=== PATIENT | female | born 1985 | race Caucasian/White ===

== ENCOUNTER 2018-11-21 22:22 | Emergency (ER) | payer OTHER ==
[~2018-11-21] VITALS: Ht 157.5 cm; Wt 73.0 kg
[2018-11-21 22:25] VITALS: BP 130/77; PULSE 86; RESP 18; Ht 157.5 cm; Wt 73.0 kg
--- NOTE | 2018-11-22 07:31 | ERD ---
ER Documentation Chief Complaint Chief Complaint NECK PAIN WITH RADIAITING ARM NUMBNESS/PAIN HPI 33-year-old female presents for bilateral hand numbness times 3 days. She also states she has bilateral feet pain. The foot pain is noted to be on the plantar side. She took ibuprofen Tylenol with some relief however she states that the symptoms are still there. She also has associated neck pain times 3 days. She notes pain to be 6 out of 10, described as a numbness. No prior similar symptoms. She does do work that requires repetitive movement of hands. ROS All systems reviewed and are negative except as per history of present illness. Medications Home Meds No Active Prescriptions or Reported Meds Allergies Allergies: Coded Allergies: No Known Allergy (Verified , 11/21/18) PMhx/Soc Medical and Surgical Hx: pt denies Medical Hx, pt denies Surgical Hx History of Surgery: No Anesthesia Reaction: No Hx Neurological Disorder: No Hx Respiratory Disorders: No Hx Cardiac Disorders: No Hx Psychiatric Problems: No Hx Miscellaneous Medical Probl: No Hx Alcohol Use: No Hx Substance Use: No Hx Tobacco Use: No Smoking Status: Never smoker Physical Exam Vitals Vital Signs Date Temp Pulse Resp B/P (MAP) Pulse Ox O2 O2 Flow FiO2 Time Delivery Rate 11/21/18 97.2 86 18 130/77 99 22:25 (94) Physical Exam Const: No acute distress Neck: Full range of motion. No meningismus. No midline tenderness. Resp: Clear to auscultation bilaterally Cardio: Regular rate and rhythm, no murmurs, bilateral radial and dorsalis pedis pulses intact Abd: Soft, non tender, non distended. Normal bowel sounds Skin: No petechiae or rashes Back: No midline or flank tenderness Ext: No cyanosis, or edema, bilateral upper and lower extremity muscle strength 5 out of 5, no actual tenderness to palpation of the bilateral hands or feet. Neur: Awake and alert, bilateral upper and lower extremity sensation intact Psych: Normal Mood and Affect Results 24 hrs Laboratory Tests Test 11/21/18 23:41 White Blood Count 9.2 10^3/ul Red Blood Count 4.54 10^6/ul Hemoglobin 13.7 g/dl Hematocrit 40.2 % Mean Corpuscular Volume 88.5 fl Mean Corpuscular Hemoglobin 30.2 pg Mean Corpuscular Hemoglobin Concent 34.1 g/dl Red Cell Distribution Width 12.1 % Platelet Count 275 10^3/UL Mean Platelet Volume 10.0 fl Immature Granulocytes % 0.300 % Neutrophils % 55.5 % Lymphocytes % 35.3 % Monocytes % 5.8 % Eosinophils % 2.3 % Basophils % 0.8 % Nucleated Red Blood Cells % 0.0 /100WBC Immature Granulocytes # 0.030 10^3/ul Neutrophils # 5.1 10^3/ul Lymphocytes # 3.3 10^3/ul Monocytes # 0.5 10^3/ul Eosinophils # 0.2 10^3/ul Basophils # 0.1 10^3/ul Nucleated Red Blood Cells # 0.0 10^3/ul Sodium Level 138 mmol/L Potassium Level 3.7 mmol/L Chloride Level 101 mmol/L Carbon Dioxide Level 25 mmol/L Anion Gap 12 Blood Urea Nitrogen 12 mg/dl Creatinine 0.59 mg/dl Est Glomerular Filtrat Rate mL/min > 60 mL/min Glucose Level 104 mg/dl Calcium Level 9.5 mg/dl Total Bilirubin 0.2 mg/dl Direct Bilirubin 0.00 mg/dl Indirect Bilirubin 0.2 mg/dl Aspartate Amino Transf (AST/SGOT) 43 IU/L Alanine Aminotransferase (ALT/SGPT) 88 IU/L Alkaline Phosphatase 80 IU/L Total Protein 8.3 g/dl Albumin 4.7 g/dl Globulin 3.60 g/dl Albumin/Globulin Ratio 1.30 Procedures/MDM Medical Decision Making: Differential diagnosis includes but not limited to CVA, carpal tunnel syndrome, muscle strain Patient appeared well on physical exam. There is no actual tenderness to palpation on physical examination of the hands or feet. CBC showed no anemia, no elevated WBC to suggest systemic infection CMP showed normal electrolytes, renal function was normal, there was mildly elevated ALT of 88. Otherwise liver function test normal. Patient advised that he will need to follow-up with his primary care physician f or repeat liver function test. Patient likely has musculoskeletal pain ED course: Patient was given . Symptoms improved with treatment. Patient advised to continue to follow with primary care physician for possible referral to neurology. Patient advised to take [id number] pain medication Patient advised to follow up with PCP in 1-2 days. Patient advised to return to ED for new or worsening symptoms. Patient stable on discharge from the ED. Disclaimer: Inadvertent spelling and grammatical errors are likely due to EHR/dictation software use and do not reflect on the overall quality of patient care. Also, please note that the electronic time recorded on this note does not necessarily reflect the actual time of the patient encounter. Departure Diagnosis: Primary Impression: Hand numbness Condition: Fair Patient Instructions: Numbness Referrals: [facility] [place] YOU HAVE RECEIVED A MEDICAL SCREENING EXAM AND THE RESULTS INDICATE THAT YOU DO NOT HAVE A CONDITION THAT REQUIRES URGENT TREATMENT IN THE EMERGENCY DEPARTMENT. FURTHER EVALUATION AND TREATMENT OF YOUR CONDITION CAN WAIT UNTIL YOU ARE SEEN IN YOUR DOCTORS OFFICE WITHIN THE NEXT 1-2 DAYS. IT IS YOUR RESPONSIBILITY TO MAKE AN APPOINTMENT FOR FOLOW-UP CARE. IF YOU HAVE A PRIMARY DOCTOR --you should call your primary doctor and schedule an appointment IF YOU DO NOT HAVE A PRIMARY DOCTOR YOU CAN CALL OUR PHYSICIAN REFERRAL HOTLINE AT IF YOU CAN NOT AFFORD TO SEE A PHYSICIAN YOU CAN CHOSE FROM THE FOLLOWING [facility] [address] [facility]. [facility] [address] [facility]. [facility] [address] [facility] [facility] [address] [facility]. [facility] [address] [facility]. [facility]. [address] Additional Instructions: Call your primary care doctor TOMORROW for an appointment during the next 1-2 days.See the doctor sooner or return here if your condition worsens before your appointment time. Llame al doctor MAANA y margot delvin REGAN PARA DENTRO DE 1-2 NEWMAN.Dgale a la secretaria que nosotros le instruimos hacer esta regan.Avise o llame si emerson condicin se empeora antes de la regan. Regresa aqui si peor o no mejor. LORIE ELIZALDE DO Nov 22, 2018 07:31
== END 2018-11-22 01:56 | disposition left against medical advice (07) ==
LOC: FTE 22:22
DX: R20.0 Anesthesia of skin (principal)
CPT/HCPCS: 80053; 85025; Z7502; 99283

== ENCOUNTER 2019-06-24 22:29 | Emergency (ER) | payer OTHER ==
[~2019-06-24] VITALS: Ht 154.9 cm; Wt 75.2 kg
[~2019-06-24 22:29] MED LIST: ACET500C5 PO; ALBU8.5H8 INH; AMOX1TAB10 PO; BENZ-6 PO; PRED20TA PO
[2019-06-24 22:40] VITALS: Ht 154.9 cm; Wt 75.2 kg
[2019-06-24] MEDS ORDERED: ALBUTEROL 0.083% (NEB) 2.5 MG/3 ML AMP HHN STA (23:22)
[2019-06-24] MEDS ORDERED: predniSONE 20 MG TAB PO ONE (23:30)
[2019-06-24] MEDS ORDERED: IPRATROPIUM (NEB) 0.5 MG/2.5 ML AMP HHN ONE (23:30)
[2019-06-25] MEDS ORDERED: ACETAMINOPHEN 325 MG TAB PO ONE
[2019-06-25 00:16] VITALS: BP 131/66; PULSE 92; RESP 22
== END 2019-06-25 00:16 | disposition home or self-care (01) ==
LOC: FTE 22:29
DX: J45.901 Unspecified asthma with (acute) exacerbation (principal); J32.9 Chronic sinusitis, unspecified; R05 Cough
CPT/HCPCS: 93005; 94664; J7512; Z7610